=== PATIENT | female | born 1950 | race Caucasian/White ===

== ENCOUNTER 2019-08-25 22:56 | Emergency (ER) | payer OTHER, MEDICARE ==
[~2019-08-25] VITALS: Ht 162.6 cm; Wt 90.7 kg
[2019-08-25] MEDS ORDERED: LEVO-T75 MCG PO (23:15)
[2019-08-25] MEDS ORDERED: ROSUVASTATIN CA10 MG PO (23:15)
[2019-08-25] MEDS ORDERED: FLONASE 0.05%50 MCG NARES (23:16)
[2019-08-25] MEDS ORDERED: BREO ELLIPTA 21 EACH INH (23:16)
[2019-08-25 23:22] LABS: HEMATOCRIT 43.4 % (37.0-47.0); HEMOGLOBIN 13.9 gm/dL (12.0-15.0); LYMPHOCYTES 27.8 % (24.0-44.0); MCH 30.1 pg (26.0-34.0); MCV 94.2 fL (80.0-100.0); PLATELET COUNT 195 thou/uL (150-400); POLYS 60.2 % (36.0-66.0); RBC 4.61 mil/uL (4.20-5.00); RDW 14.6 % (10.5-14.5); WBC 8.3 thou/uL (4.0-11.0)
[2019-08-25 23:44] LABS: ANION GAP 8 mmol/L (7-16); BUN 18 mg/dL (7-18); CALCIUM 8.8 mg/dL (8.5-10.1); CHLORIDE 105 mmol/L (98-107); CO2 25 mmol/L (21-32); CREATININE 0.9 mg/dL (0.6-1.0); GLUCOSE 89 mg/dL (74-106); POTASSIUM 4.1 mmol/L (3.5-5.1); SODIUM 138 mmol/L (136-145)
[2019-08-25 23:53] LABS: TROPONIN-I <0.06 ng/mL (<0.06)
[2019-08-26 00:30] VITALS: BP 152/66
--- NOTE | 2019-08-26 13:24 | EKG ---
[facility] [place] [address] ELECTROCARDIOGRAM REPORT Name: YURI EASTMAN Room #: DEP [facility]#: [id number] Admission: 08/25/19 Attend Phys: Discharge: 08/26/19 Date of : 50 Report #: [id number] THIS REPORT FOR: cc: Alexx Harris MD, Steven A. MD Lundgren,Ameya Doyle MD [facility] ~ THIS REPORT FOR: //name// [facility] ED Test Date: 2019-08-25 Test Time: 22:59:54 Pat Name: YURI EASTMAN Department: Room: Gender: F Commercial Sales Manager: [facility] : 1950 Requested By: Eliazar Franklin Order Number: [id number] MD: Ameya Muhammad Measurements Intervals [place] Rate: 64 P: 70 MD: 108 QRS: 52 QRSD: 111 T: 45 QT: 401 QTc: 414 Interpretive Statements Sinus rhythm Short MD interval Minimal ST depression, inferior leads No previous ECG available for comparison Electronically Signed On 08-26-2019 13:22:57 CDT by Ameya Muhammad [email or web address] <ELECTRONICALLY SIGNED> By: Ameya Muhammad MD, FACC 08/26/19 1322 [id number] Ameya Muhammad MD, [facility] /EPI
== END 2019-08-26 00:30 | disposition home or self-care (01) ==
LOC: ER 22:56
PROVIDERS: Emergency Medicine
DX: R07.89 Other chest pain (principal); R10.9 Unspecified abdominal pain; M19.90 Unspecified osteoarthritis, unspecified site; E78.5 Hyperlipidemia, unspecified; J45.909 Unspecified asthma, uncomplicated; E66.9 Obesity, unspecified; Z79.899 Other long term (current) drug therapy

== ENCOUNTER → 2019-09-07 | Outpatient (CLI) | payer OTHER, MEDICARE ==
[~2019-09-07] MED LIST: BREO ELLIPTA 21 EACH INH; FLONASE 0.05%50 MCG NARES; LEVO-T75 MCG PO; ROSUVASTATIN CA10 MG PO
== END ==
LOC: SJCVCIMAG 11:14 → SJCVC 11:14
DX: R07.9 Chest pain, unspecified (principal); E78.00 Pure hypercholesterolemia, unspecified; M19.90 Unspecified osteoarthritis, unspecified site; K21.9 Gastro-esophageal reflux disease without esophagitis; I10 Essential (primary) hypertension; Z79.899 Other long term (current) drug therapy; Z87.891 Personal history of nicotine dependence; Z82.49 Family history of ischemic heart disease and other diseases of the circulatory system

== ENCOUNTER → 2020-09-08 | Outpatient (CLI) | payer OTHER | LOC: RAD 14:13 | PROVIDERS: ATTEND Internal Medicine Cardiovascular Disease | DX: Z13.6 Encounter for screening for cardiovascular disorders (principal); I25.10 Atherosclerotic heart disease of native coronary artery without angina pectoris; E78.00 Pure hypercholesterolemia, unspecified ==

== ENCOUNTER → 2020-09-08 | Outpatient (CLI) | payer OTHER, MEDICARE | LOC: SJCVC 14:53 | PROVIDERS: ATTEND Internal Medicine Cardiovascular Disease | DX: R94.31 Abnormal electrocardiogram [ECG] [EKG] (principal); E78.00 Pure hypercholesterolemia, unspecified; K21.9 Gastro-esophageal reflux disease without esophagitis; M19.90 Unspecified osteoarthritis, unspecified site; J45.909 Unspecified asthma, uncomplicated; E78.5 Hyperlipidemia, unspecified; Z79.899 Other long term (current) drug therapy; Z87.891 Personal history of nicotine dependence; Z72.89 Other problems related to lifestyle ==